=== PATIENT | male | born 1980 | race Caucasian/White ===

== ENCOUNTER 2022-09-13 13:57 | Emergency (ER) | payer OTHER ==
[~2022-09-13] VITALS: Ht 190.5 cm; Wt 127.0 kg
[2022-09-13 13:57] VITALS: BP_SYST 124
[2022-09-13] MEDS ORDERED: GLUCAGON,HUMAN RECOMBINANT 1 MG VIAL IVP ONE (14:30)
[2022-09-13 15:58] VITALS: BP_SYST 122
== END 2022-09-13 16:02 | disposition home or self-care (01) ==
LOC: SED 13:57
DX: R09.89 Other specified symptoms and signs involving the circulatory and respiratory systems (principal); Z79.899 Other long term (current) drug therapy
CPT/HCPCS: 99284; 96374; 71045; 70360; J1610